=== PATIENT | female | born 1970 | race Caucasian/White ===

== ENCOUNTER 2020-06-16 06:50 | Emergency (ER) | payer MEDICAID ==
[~2020-06-16] VITALS: Ht 154.9 cm; Wt 68.9 kg
[2020-06-16 06:51] VITALS: BP 102/65
--- NOTE | 2020-06-16 06:51 | NUR ---
TO BED AMBULATORY
--- NOTE | 2020-06-16 07:08 | NUR ---
ERMD is evaluating patient at bedside
--- NOTE | 2020-06-16 07:12 | NUR ---
Report and continuation of care received from ANCELMO Yeboah.
--- NOTE | 2020-06-16 07:24 | NUR ---
LAB AT BEDSIDE
--- NOTE | 2020-06-16 07:24 | NUR ---
EMT AT BEDSIDE FOR EKG.
--- NOTE | 2020-06-16 07:25 | NUR ---
50 Y/O F coming in from with c/c left knee pain. Pt presents A&Ox4, ambulatory, Frisian speaking and states left knee pain, left rib cage pain, and left scapula pain. Patient states it "started a few days ago and worsen today." Pt reports pain 9/10, "worsening" that radiates to her left hip. Pt denies chest pain, shortness of breath, dizziness, headache, fever/chills, cold-like symptoms. Pt denies taking any medications prior to arrival. box car checker in place. Bed locked in lowest position, side rails x 1. PMH: DM, hyperlipidemia, HTN Meds: Insulin humalog, Insulin lantus, Metformin, Atenolol, Atorvastatin, ASA, Ibuprofen NKA
[2020-06-16 07:34] LABS: BASOPHILS # (AUTO) 0.1 K/uL (0.00-0.22); BASOPHILS % (AUTO) 1.1 % (0.0-2.0); EOSINOPHILS # (AUTO) 0.2 K/uL (0-0.4); HEMATOCRIT 40.4 % (36-48); HEMOGLOBIN 13.8 g/dL (12.0-16.0); LYMPHOCYTES # (AUTO) 2.4 K/uL (2.5-16.5); MEAN CORPUSCULAR HEMOGLOBIN 31 pg (27-31); MEAN CORPUSCULAR HGB CONC 34 g/dL (33-37); MONOCYTES # (AUTO) 0.4 K/uL (0.8-1.0); MONOCYTES % (AUTO) 8.2 % (1.7-9.3); NEUTROPHILS # (AUTO) 2.2 K/uL (1.8-7.7); NEUTROPHILS % (AUTO) 41.7 % (42.2-75.2); PLATELET COUNT (AUTO) 209 K/uL (140-450); RED BLOOD CELL COUNT(AUTO) 4.43 MIL/uL (4.20-5.40); RED CELL DISTRIBUTION WIDTH 12.9 % (11.6-13.7); WHITE BLOOD COUNT (AUTO) 5.3 K/uL (4.8-10.8)
--- NOTE | 2020-06-16 07:45 | NUR ---
XRAY AT BEDSIDE
[2020-06-16 07:53] LABS: ALBUMIN 3.6 g/dL (3.4-5.0); ANION GAP 10.7 (8-16); CARBON DIOXIDE 26.1 mmol/L (21-32); CREATININE 0.4 mg/dL (0.6-1.3); POTASSIUM 3.8 mmol/L (3.5-5.1); TOTAL BILIRUBIN 0.4 mg/dL (0.0-1.0)
[2020-06-16] MEDS ORDERED: KETOROLAC 15 MG/ML VIAL IVP SCH (08:10)
[2020-06-16] MEDS: KETOROLAC 15 MG/ML VIAL IM SCH (08:30)
[2020-06-16] MEDS: ACETAMINOPHEN EXTRA STRENGTH 500 MG TAB PO SCH (08:30)
--- NOTE | 2020-06-16 09:00 | NUR ---
Dr. Mathur is reevaluating patient at bedside
[2020-06-16 09:14] VITALS: BP 142/70
--- NOTE | 2020-06-16 09:14 | NUR ---
Patient discharged with v/s stable. Written and verbal after care instructions given and explained. Patient verbalized understanding. Ambulatory with steady gait. All questions addressed prior to discharge. Advised to follow up with PMD.
== END 2020-06-16 09:14 | disposition home or self-care (01) ==
LOC: MED 06:50
DX: M25.562 Pain in left knee (principal); M25.552 Pain in left hip; R07.9 Chest pain, unspecified
CPT/HCPCS: 36415; 71045; 73502; 73562; 80053; 81002; 81025; 84484; 85025; 93005; 96372; 99285; J1885